=== PATIENT | male | born 1970 | race Two or more races ===

== ENCOUNTER 2021-01-29 16:42 | Outpatient (CLI) | payer OTHER | END 2021-01-29 16:49 | disposition home or self-care (01) | LOC: LAB 16:42 | PROVIDERS: ATTEND Internal Medicine Hematology & Oncology | DX: R79.89 Other specified abnormal findings of blood chemistry (principal); I10 Essential (primary) hypertension; R74.02 Elevation of levels of lactic acid dehydrogenase [LDH]; K76.89 Other specified diseases of liver; D50.8 Other iron deficiency anemias; D63.8 Anemia in other chronic diseases classified elsewhere; D55.0 Anemia due to glucose-6-phosphate dehydrogenase [G6PD] deficiency; D51.1 Vitamin B12 deficiency anemia due to selective vitamin B12 malabsorption with proteinuria; D51.0 Vitamin B12 deficiency anemia due to intrinsic factor deficiency; E03.8 Other specified hypothyroidism; E06.3 Autoimmune thyroiditis; R97.0 Elevated carcinoembryonic antigen [CEA]; R97.8 Other abnormal tumor markers; R97.20 Elevated prostate specific antigen [PSA]; D72.818 Other decreased white blood cell count ==

== ENCOUNTER 2022-04-10 08:41 | Outpatient (CLI) | payer OTHER | END 2022-04-10 08:42 | disposition home or self-care (01) | LOC: LAB 08:41 | PROVIDERS: ATTEND Internal Medicine Hematology & Oncology | DX: D50.8 Other iron deficiency anemias (principal); R79.9 Abnormal finding of blood chemistry, unspecified; I10 Essential (primary) hypertension; R74.02 Elevation of levels of lactic acid dehydrogenase [LDH]; K76.89 Other specified diseases of liver; D55.0 Anemia due to glucose-6-phosphate dehydrogenase [G6PD] deficiency; R97.0 Elevated carcinoembryonic antigen [CEA]; R97.8 Other abnormal tumor markers; R97.20 Elevated prostate specific antigen [PSA]; D51.3 Other dietary vitamin B12 deficiency anemia; D72.818 Other decreased white blood cell count ==

== ENCOUNTER 2022-05-09 10:09 | Outpatient (CLI) | payer OTHER | END 2022-05-09 10:11 | disposition home or self-care (01) | LOC: LAB 10:09 | PROVIDERS: ATTEND Urology | DX: N52.9 Male erectile dysfunction, unspecified (principal); N40.0 Benign prostatic hyperplasia without lower urinary tract symptoms; D64.9 Anemia, unspecified; M54.50 Low back pain, unspecified; E55.9 Vitamin D deficiency, unspecified; D55.0 Anemia due to glucose-6-phosphate dehydrogenase [G6PD] deficiency ==